=== PATIENT | female | born 1975 | race Caucasian/White ===

== ENCOUNTER 2018-12-23 11:08 | Emergency (ER) | payer MEDICARE ==
[~2018-12-23] VITALS: Ht 175.3 cm; Wt 109.1 kg
[2018-12-23 11:15] VITALS: BP 144/104
[2018-12-23] MEDS ORDERED: COMP5 PO (11:23)
[2018-12-23] MEDS ORDERED: DIPH25 PO (11:23)
[2018-12-23] MEDS ORDERED: IPRA4AER IH (11:23)
== END 2018-12-23 14:19 | disposition left against medical advice (07) ==
LOC: EMS 11:13
DX: G43.909 Migraine, unspecified, not intractable, without status migrainosus (principal); I10 Essential (primary) hypertension; F41.9 Anxiety disorder, unspecified; J45.909 Unspecified asthma, uncomplicated; Z88.0 Allergy status to penicillin; Z88.2 Allergy status to sulfonamides; Z88.7 Allergy status to serum and vaccine; Z79.899 Other long term (current) drug therapy